=== PATIENT | male | born 1965 | race Caucasian/White ===

== ENCOUNTER 2022-03-06 08:19 | Outpatient (CLI) | payer OTHER | END 2022-03-06 08:20 | disposition home or self-care (01) | LOC: RAD 08:19 | PROVIDERS: ATTEND Internal Medicine | DX: R06.00 Dyspnea, unspecified (principal) | CPT/HCPCS: 71046 ==

== ENCOUNTER 2022-05-28 08:15 | Outpatient (CLI) | payer OTHER | END 2022-05-28 08:16 | disposition home or self-care (01) | LOC: RAD 08:15 | PROVIDERS: ATTEND Internal Medicine | DX: R06.00 Dyspnea, unspecified (principal) | CPT/HCPCS: 71046 ==

== ENCOUNTER 2022-12-24 11:27 | Outpatient (CLI) | payer OTHER | END 2022-12-24 11:28 | disposition home or self-care (01) | LOC: BICCT 11:27 → CT 11:28 | PROVIDERS: ATTEND Internal Medicine | DX: R06.00 Dyspnea, unspecified (principal); K44.9 Diaphragmatic hernia without obstruction or gangrene; K76.89 Other specified diseases of liver | CPT/HCPCS: 71250 ==